=== PATIENT | male | born 1945 | race Caucasian/White ===

== ENCOUNTER 2021-11-18 11:56 | Observation (INO) ==
[2021-11-18 12:36] LABS: Basophils % 0.2 %; Eosinophils % 0.1 %; Hematocrit 39.5 % (37.5-50.1); Hemoglobin 13.5 g/dL (12.9-16.9); Immature Granulocytes % 0.4 % (0-4); Lymphocytes # 1.7 K/mcL (0.6-4.6); Lymphocytes % 10.1 %; Mean Corpuscular HGB Conc 34.2 g/dL (31.6-35.5); Mean Corpuscular Hemoglobin 30.7 pg (28.0-33.3); Mean Corpuscular Volume 89.8 fL (83.0-100.0); Mean Platelet Volume 10.5 fL (9.4-12.4); Monocytes # 1.1 K/mcL (0.0-1.3); Monocytes % 6.7 %; Neutrophils # 13.8 K/mcL (1.6-8.9); Platelet Count 227 K/mcL (140-400); Red Cell Distribution Width 12.7 % (11.5-14.5); Segmented Neutrophils % 82.5 %; White Blood Count 16.7 K/mcL (4.3-11.1)
[2021-11-18 12:52] LABS: BUN/Creatinine Ratio 18 (6-26); Blood Urea Nitrogen 21 mg/dL (8-23); Calcium 8.6 mg/dL (8.6-10.3); Carbon Dioxide 24 mEq/L (23-29); Chloride 102 mEq/L (98-107); Glucose 123 mg/dL (70-105); Osmolality,Calculated 286 (280-300); Potassium 4.3 mEq/L (3.5-5.1); Sodium 136 mEq/L (136-145); eGFR For African Americans > 60 (> 60); eGFR For Non-African Americans 60 (> 60)
[2021-11-18 12:57] LABS: Troponin I < 0.03 ng/mL (< 0.04)
[2021-11-18 13:25] LABS: Bilirubin,Urine Small (Negative); Blood,Urine Moderate (Negative); Clarity,Urine Cloudy (Clear); Color,Urine Yellow (Yellow); Glucose,Urine (UA) Normal (Normal); Ketones,Urine Trace mg/dL (Negative); Leukocyte Esterase,Urine Moderate (Negative); Nitrite,Urine Negative (Negative); PH,Urine 5.5 pH Units (5.0-8.0); Protein,Urine 100 mg/dL (Neg-Trace); Specific Gravity,Urine 1.025 (1.010-1.025); Urobilinogen,Urine Normal (Normal)
[2021-11-18 13:34] LABS: Bacteria,Urine Many per hpf (None-Few); Mucus,Urine Few per lpf (None-Few); Squamous Epithelial Cell,Urine Few per hpf (None-Few); WBC,Urine 50-100 per hpf (0-3)
[2021-11-18] MEDS ORDERED: Acetaminophen 325 MG TABLET PO PRN (14:53)
[2021-11-18] MEDS ORDERED: Naloxone 0.4 MG/ML INJ IVP PRN (14:53)
[2021-11-18] MEDS ORDERED: Ondansetron 4 MG/2 ML VIAL IVP PRN (14:53)
[2021-11-18] MEDS: QUEtiapine Fumarate 25 MG TABLET PO SCH (22:18)
[2021-11-18] MEDS: traZODone 50 MG TABLET PO SCH (22:18)
[2021-11-18] MEDS: Divalproex (12 HR) 250 MG TABLET PO SCH (22:19)
[2021-11-19 06:38] LABS: Basophils % 0.3 %; Eosinophils # 0.1 K/mcL (0.0-0.6); Eosinophils % 1.7 %; Hematocrit 39.5 % (37.5-50.1); Hemoglobin 13.1 g/dL (12.9-16.9); Immature Granulocytes % 0.4 % (0-4); Lymphocytes # 2.1 K/mcL (0.6-4.6); Lymphocytes % 28.3 %; Mean Corpuscular HGB Conc 33.2 g/dL (31.6-35.5); Mean Corpuscular Hemoglobin 30.1 pg (28.0-33.3); Mean Corpuscular Volume 90.8 fL (83.0-100.0); Mean Platelet Volume 10.2 fL (9.4-12.4); Monocytes # 0.6 K/mcL (0.0-1.3); Monocytes % 8.3 %; Neutrophils # 4.6 K/mcL (1.6-8.9); Platelet Count 195 K/mcL (140-400); Red Blood Count 4.35 M/mcL (4.19-5.50); Red Cell Distribution Width 12.7 % (11.5-14.5); White Blood Count 7.5 K/mcL (4.3-11.1)
[2021-11-19 06:55] LABS: BUN/Creatinine Ratio 15 (6-26); Blood Urea Nitrogen 17 mg/dL (8-23); Carbon Dioxide 30 mEq/L (23-29); Chloride 102 mEq/L (98-107); Glucose 89 mg/dL (70-105); Magnesium 2.2 mg/dL (1.6-2.6); Osmolality,Calculated 287 (280-300); Potassium 4.3 mEq/L (3.5-5.1); Sodium 138 mEq/L (136-145); eGFR For African Americans > 60 (> 60); eGFR For Non-African Americans > 60 (> 60)
[2021-11-19] MEDS ORDERED: cefTRIAXone 2,000 MG in 0.9 % Sodium Chloride Mini Bag 100 ML IVPB SCH (09:00)
[2021-11-19] MEDS: Divalproex (12 HR) 250 MG TABLET PO SCH ×2 (10:37→20:53)
[2021-11-19] MEDS: Aspirin 81 MG TAB.CHEW PO SCH (10:37)
[2021-11-19] MEDS: Rivastigmine Patch 4.6 MG PATCH.TD24 TD SCH (10:37)
[2021-11-19] MEDS: Finasteride 5 MG TABLET PO SCH (10:37)
[2021-11-19] MEDS: amLODIPine 5 MG TABLET PO SCH (10:37)
[2021-11-19] MEDS: QUEtiapine Fumarate 25 MG TABLET PO SCH ×2 (10:38→20:52)
[2021-11-19] MEDS ORDERED: cefTRIAXone 2,000 MG in 0.9 % Sodium Chloride 20 ML IVP SCH (14:00)
[2021-11-19] MEDS: cefTRIAXone 2,000 MG in 0.9 % Sodium Chloride Mini Bag 100 ML IVPB SCH (15:02)
[2021-11-19] MEDS: traZODone 50 MG TABLET PO SCH (20:53)
[2021-11-20] MEDS: *HR* Enoxaparin 40 MG/0.4 ML SYRINGE SQ SCH (05:24)
[2021-11-20 05:59] LABS: Basophils % 0.6 %; Eosinophils # 0.2 K/mcL (0.0-0.6); Eosinophils % 3.1 %; Hematocrit 40.5 % (37.5-50.1); Hemoglobin 13.3 g/dL (12.9-16.9); Immature Granulocytes % 0.6 % (0-4); Lymphocytes # 1.9 K/mcL (0.6-4.6); Lymphocytes % 29.8 %; Mean Corpuscular HGB Conc 32.8 g/dL (31.6-35.5); Mean Corpuscular Hemoglobin 29.8 pg (28.0-33.3); Mean Corpuscular Volume 90.6 fL (83.0-100.0); Mean Platelet Volume 10.8 fL (9.4-12.4); Monocytes # 0.7 K/mcL (0.0-1.3); Monocytes % 10.6 %; Neutrophils # 3.6 K/mcL (1.6-8.9); Platelet Count 208 K/mcL (140-400); Red Blood Count 4.47 M/mcL (4.19-5.50); Red Cell Distribution Width 12.6 % (11.5-14.5); Segmented Neutrophils % 55.3 %; White Blood Count 6.5 K/mcL (4.3-11.1)
[2021-11-20 06:34] LABS: BUN/Creatinine Ratio 16 (6-26); Blood Urea Nitrogen 16 mg/dL (8-23); Calcium 8.9 mg/dL (8.6-10.3); Carbon Dioxide 29 mEq/L (23-29); Chloride 102 mEq/L (98-107); Glucose 82 mg/dL (70-105); Osmolality,Calculated 288 (280-300); Potassium 3.9 mEq/L (3.5-5.1); Sodium 139 mEq/L (136-145); eGFR For African Americans > 60 (> 60); eGFR For Non-African Americans > 60 (> 60)
[2021-11-20] MEDS: Finasteride 5 MG TABLET PO SCH (09:20)
[2021-11-20] MEDS: Aspirin 81 MG TAB.CHEW PO SCH (09:21)
[2021-11-20] MEDS: Rivastigmine Patch 4.6 MG PATCH.TD24 TD SCH (09:21)
[2021-11-20] MEDS: Divalproex (12 HR) 250 MG TABLET PO SCH ×2 (09:21→20:48)
[2021-11-20] MEDS: amLODIPine 5 MG TABLET PO SCH (09:21)
[2021-11-20] MEDS: QUEtiapine Fumarate 25 MG TABLET PO SCH ×2 (09:21→20:47)
[2021-11-20] MEDS: cefTRIAXone 2,000 MG in 0.9 % Sodium Chloride Mini Bag 100 ML IVPB SCH (13:47)
[2021-11-20] MEDS: Cefdinir 300 MG CAPSULE PO SCH (20:47)
[2021-11-20] MEDS: traZODone 50 MG TABLET PO SCH (20:48)
[2021-11-21 06:28] LABS: Basophils % 0.5 %; Eosinophils # 0.2 K/mcL (0.0-0.6); Eosinophils % 2.3 %; Hematocrit 38.7 % (37.5-50.1); Hemoglobin 12.8 g/dL (12.9-16.9); Immature Granulocytes % 0.6 % (0-4); Lymphocytes # 2.3 K/mcL (0.6-4.6); Lymphocytes % 27.1 %; Mean Corpuscular HGB Conc 33.1 g/dL (31.6-35.5); Mean Corpuscular Hemoglobin 30.2 pg (28.0-33.3); Mean Corpuscular Volume 91.3 fL (83.0-100.0); Mean Platelet Volume 11.1 fL (9.4-12.4); Monocytes % 11.1 %; Neutrophils # 5.1 K/mcL (1.6-8.9); Platelet Count 225 K/mcL (140-400); Red Blood Count 4.24 M/mcL (4.19-5.50); Red Cell Distribution Width 12.8 % (11.5-14.5); Segmented Neutrophils % 58.4 %; White Blood Count 8.6 K/mcL (4.3-11.1)
[2021-11-21 06:50] LABS: BUN/Creatinine Ratio 16 (6-26); Blood Urea Nitrogen 17 mg/dL (8-23); Calcium 8.9 mg/dL (8.6-10.3); Carbon Dioxide 27 mEq/L (23-29); Chloride 104 mEq/L (98-107); Glucose 91 mg/dL (70-105); Osmolality,Calculated 291 (280-300); Sodium 140 mEq/L (136-145); eGFR For African Americans > 60 (> 60); eGFR For Non-African Americans > 60 (> 60)
[2021-11-21] MEDS: *HR* Enoxaparin 40 MG/0.4 ML SYRINGE SQ SCH (09:59)
[2021-11-21] MEDS: Rivastigmine Patch 4.6 MG PATCH.TD24 TD SCH (10:00)
[2021-11-21] MEDS: Aspirin 81 MG TAB.CHEW PO SCH (10:01)
[2021-11-21] MEDS: Finasteride 5 MG TABLET PO SCH (10:01)
[2021-11-21] MEDS: amLODIPine 5 MG TABLET PO SCH (10:02)
[2021-11-21] MEDS: Cefdinir 300 MG CAPSULE PO SCH ×2 (10:02→22:24)
[2021-11-21] MEDS: Divalproex (12 HR) 250 MG TABLET PO SCH ×2 (10:02→22:23)
[2021-11-21] MEDS: QUEtiapine Fumarate 25 MG TABLET PO SCH ×2 (10:11→22:24)
[2021-11-21] MEDS: traZODone 50 MG TABLET PO SCH (22:24)
[2021-11-22 07:12] VITALS: BP 156/83; PULSE 72; RESP 16; TEMP 98.2; O2SAT 96
[2021-11-22] MEDS: *HR* Enoxaparin 40 MG/0.4 ML SYRINGE SQ SCH (07:36)
[2021-11-22] MEDS: amLODIPine 5 MG TABLET PO SCH (07:56)
[2021-11-22] MEDS: Cefdinir 300 MG CAPSULE PO SCH (07:56)
[2021-11-22] MEDS: Aspirin 81 MG TAB.CHEW PO SCH (07:56)
[2021-11-22] MEDS: Divalproex (12 HR) 250 MG TABLET PO SCH (07:56)
[2021-11-22] MEDS: Finasteride 5 MG TABLET PO SCH (07:57)
[2021-11-22] MEDS: Rivastigmine Patch 4.6 MG PATCH.TD24 TD SCH (07:57)
[2021-11-22] MEDS: QUEtiapine Fumarate 25 MG TABLET PO SCH (07:57)
[2021-11-22 14:19] LABS: Influenza A PCR Negative (Negative); Influenza B PCR Negative (Negative); Resp. Syncytial Virus PCR Negative (Negative); SARS-CoV-2 by PCR (In House) Negative (Negative)
== END 2021-11-22 13:51 | disposition other institution (70) ==
LOC: EMEROOPIK 11:56 → INPPIK 11:56
PROVIDERS: ADMIT Family Medicine; ATTEND Family Medicine